=== PATIENT | female | born 1940 | race African-American/Black ===

== ENCOUNTER 2024-12-13 18:21 | Inpatient (IN) | payer BC, MEDICARE ==
[~2024-12-13] VITALS: Ht 149.9 cm; Wt 60.8 kg
[2024-12-13 20:11] LABS: BASOPHILS % 1.6 % (0.0-2.0); EOSINOPHILS % 8.3 % (0.0-5.0); HEMATOCRIT. 35.5 % (36.0-48.0); HEMOGLOBIN. 11.5 g/dL (12.0-16.0); LYMPHOCYTES % 17.1 % (20.0-50.0); MEAN CORPUSCULAR HEMOGLOBIN 28.2 pg (28.0-32.0); MEAN CORPUSCULAR HGB CONC 32.5 g/dL (31.0-37.0); MEAN CORPUSCULAR VOLUME 86.7 fL (81.0-99.0); MEAN PLATELET VOLUME 9.5 fl (7.4-10.4); PLATELET 245 x1000/uL (130-400); RED BLOOD CELL COUNT 4.09 mill/uL (4.2-5.4); RED CELL DISTRIBUTION WIDTH 15.4 % (11.6-14.6); WHITE BLOOD COUNT 7.1 x1000/uL (4.5-11.0)
[2024-12-13 20:18] LABS: CHLORIDE 109 mEq/L (98-107); POTASSIUM 4.1 mEq/L (3.5-5.1); SODIUM 144 mEq/L (136-145)
[2024-12-13 20:19] LABS: CALCIUM 9.8 mg/dL (8.7-10.4); CARBON DIOXIDE 29 mEq/L (21-32)
[2024-12-13 20:24] LABS: CREATININE 1.4 mg/dL (0.6-1.0); GLUCOSE 91 mg/dL (70-105); UREA NITROGEN BLOOD 19 mg/dL (9-23)
[2024-12-13 20:28] LABS: INR 1.1; PARTIAL THROMBOPLASTIN TIME 27.3 sec (23.4-31.0); PROTHROMBIN TIME 11.4 sec (9.6-11.0)
[2024-12-13 20:32] LABS: TROPONIN I HIGH SENSITIVITY 41 ng/L (3.0-34)
[2024-12-13 21:43] LABS: TROPONIN I HIGH SENSITIVITY 35 ng/L (3.0-34)
[2024-12-13] MEDS: ASPIRIN 325MG EC TABLET PO ONE (22:27)
[2024-12-13] MEDS: SODIUM CHLORIDE 0.9% 500 ML IV ONE (22:27)
[2024-12-13] MEDS: ENOXAPARIN 40MG/0.4ML SYR SUBCUT ONE (22:27)
[2024-12-13] MEDS ORDERED: ASPIRIN 81MG EC TABLET PO SCH (22:30)
[2024-12-13] MEDS ORDERED: ONDANSETRON HCL 4MG/2ML INJ IV PRN (22:30)
[2024-12-13 23:15] VITALS: BP 157/57; PULSE 61; RESP 18; TEMP 36.3
[2024-12-14 00:13] LABS: TRIGLYCERIDE 101 mg/dL (0-150)
[2024-12-14 00:14] LABS: LDL CHOLESTEROL 93 mg/dL (5-100)
[2024-12-14 00:15] LABS: CHOLESTEROL 154 mg/dL (<200); HDL CHOLESTEROL 43 mg/dL (>65)
[2024-12-14 00:17] LABS: THYROID STIMULATING HORMONE 1.42 uIU/mL (0.55-4.78)
[2024-12-14 04:00] VITALS: BP 146/51; PULSE 49; RESP 17; TEMP 36.1; O2SAT 99
[2024-12-14] MEDS ORDERED: DEXTROSE 50% WATER 50ML SYRINGE IV PRN (04:15)
[2024-12-14] MEDS: BRIMONIDINE 0.2% OPHTH DROPS 10ML BOTHEYE SCH (06:00)
[2024-12-14] MEDS: PANTOPRAZOLE 40MG DR TABLET PO SCH (06:44)
[2024-12-14] MEDS: BLOOD SUGAR DIAGNOSTIC STRIP TEST SCH (06:51)
[2024-12-14] MEDS: INSULIN LISPRO 100 UNITS/ML SUBCUT SCH (07:28)
[2024-12-14 08:00] VITALS: BP_SYST 165; BP_DIAS 112; BP_DIAS 42; PULSE 56; RESP 18; TEMP 35.8; O2SAT 100
[2024-12-14] MEDS ORDERED: LOTEN PO SCH (09:00)
[2024-12-14] MEDS: DOCUSATE SODIUM 250MG CAPSULE PO SCH (09:10)
[2024-12-14] MEDS: AMLODIPINE 10MG TABLET PO SCH (09:10)
[2024-12-14] MEDS: LISINOPRIL 40MG TABLET PO SCH (09:10)
[2024-12-14 12:01] LABS: EOSINOPHILS % 13.5 % (0.0-5.0); HEMATOCRIT. 37.2 % (36.0-48.0); LYMPHOCYTES % 29.2 % (20.0-50.0); MEAN CORPUSCULAR HEMOGLOBIN 27.6 pg (28.0-32.0); MEAN CORPUSCULAR HGB CONC 32.2 g/dL (31.0-37.0); MEAN CORPUSCULAR VOLUME 85.7 fL (81.0-99.0); MEAN PLATELET VOLUME 9.6 fl (7.4-10.4); MONOCYTES % 12.9 % (2.0-8.0); NEUTROPHILS % 42.4 % (40.0-76.0); PLATELET 251 x1000/uL (130-400); RED BLOOD CELL COUNT 4.34 mill/uL (4.2-5.4); RED CELL DISTRIBUTION WIDTH 15.5 % (11.6-14.6); WHITE BLOOD COUNT 6.5 x1000/uL (4.5-11.0)
[2024-12-14 12:31] LABS: CHLORIDE 107 mEq/L (98-107); POTASSIUM 3.9 mEq/L (3.5-5.1); SODIUM 147 mEq/L (136-145)
[2024-12-14 12:32] LABS: CALCIUM 9.4 mg/dL (8.7-10.4); CARBON DIOXIDE 30 mEq/L (21-32)
[2024-12-14 12:34] LABS: CREATINE KINASE MB FRACTION 2.2 ng/mL (0.5-3.6)
[2024-12-14 12:37] LABS: ALANINE AMINOTRANSFERASE 7 IU/L (10-49); CREATININE 1.2 mg/dL (0.6-1.0); GLUCOSE 81 mg/dL (70-105); UREA NITROGEN BLOOD 23 mg/dL (9-23)
[2024-12-14 12:39] LABS: ALBUMIN 3.8 g/dL (3.2-4.8); ASPARTATE AMINOTRANSFERASE 14 IU/L (<34); BILIRUBIN TOTAL 0.5 mg/dL (0.1-1.0); PROTEIN TOTAL 6.4 g/dL (6.0-8.3)
[2024-12-14 12:54] LABS: TROPONIN I HIGH SENSITIVITY 47 ng/L (3.0-34)
[2024-12-14] MEDS: HYDRALAZINE HCL 50MG TABLET PO SCH (13:40)
[2024-12-14] MEDS: SODIUM CHLORIDE 0.45% 1,000 ML IV SCH (13:41)
[2024-12-14 16:00] VITALS: BP 134/75; PULSE 60; RESP 19; TEMP 36.5; O2SAT 100
[2024-12-14 16:33] LABS: CREATINE KINASE MB FRACTION 1.6 ng/mL (0.5-3.6)
[2024-12-14 20:00] VITALS: BP 125/34; PULSE 58; RESP 18; TEMP 36.2; O2SAT 98
[2024-12-14] MEDS: ATORVASTATIN CALCIUM 10MG TABLET PO SCH (21:43)
[2024-12-14] MEDS: LATANOPROST 0.005% OPHTH DROPS 2.5ML BOTHEYE SCH (21:44)
[2024-12-15 08:00] VITALS: BP 168/54; PULSE 64; RESP 20; TEMP 36.4; O2SAT 96
[2024-12-15 08:05] LABS: BASOPHILS % 1.4 % (0.0-2.0); EOSINOPHILS % 11.4 % (0.0-5.0); HEMATOCRIT. 35.3 % (36.0-48.0); HEMOGLOBIN. 11.4 g/dL (12.0-16.0); LYMPHOCYTES % 27.3 % (20.0-50.0); MEAN CORPUSCULAR HGB CONC 32.3 g/dL (31.0-37.0); MEAN CORPUSCULAR VOLUME 86.7 fL (81.0-99.0); MEAN PLATELET VOLUME 9.7 fl (7.4-10.4); MONOCYTES % 9.1 % (2.0-8.0); NEUTROPHILS % 50.8 % (40.0-76.0); PLATELET 233 x1000/uL (130-400); RED BLOOD CELL COUNT 4.08 mill/uL (4.2-5.4); RED CELL DISTRIBUTION WIDTH 15.8 % (11.6-14.6); WHITE BLOOD COUNT 6.1 x1000/uL (4.5-11.0)
[2024-12-15 08:47] LABS: CARBON DIOXIDE 27 mEq/L (21-32); CHLORIDE 109 mEq/L (98-107); POTASSIUM 4.4 mEq/L (3.5-5.1); SODIUM 146 mEq/L (136-145)
[2024-12-15 08:49] LABS: CALCIUM 9.4 mg/dL (8.7-10.4)
[2024-12-15 08:51] LABS: THYROID STIMULATING HORMONE 1.23 uIU/mL (0.55-4.78)
[2024-12-15 08:52] LABS: CREATININE 1.2 mg/dL (0.6-1.0)
[2024-12-15 08:53] LABS: GLUCOSE 104 mg/dL (70-105); UREA NITROGEN BLOOD 22 mg/dL (9-23)
[2024-12-15 12:00] VITALS: BP 197/71; PULSE 58; RESP 18; TEMP 36.6; O2SAT 97
[2024-12-15] MEDS: HYDRALAZINE HCL 100MG TABLET PO SCH (14:00)
[2024-12-15] MEDS: MAGNESIUM 1 G PREMIX 100 ML IV SCH (14:24)
[2024-12-15 16:00] VITALS: BP 126/57; PULSE 57; RESP 18; TEMP 36.6; O2SAT 100
[2024-12-15 20:00] VITALS: BP 138/46; PULSE 48; RESP 18; TEMP 36.2; O2SAT 100
[2024-12-16] VITALS: BP 131/44; PULSE 64; RESP 19; TEMP 36.6; O2SAT 97
[2024-12-16 04:00] VITALS: BP 150/52; PULSE 49; RESP 18; TEMP 36.4; O2SAT 98
[2024-12-16 06:58] LABS: CHLORIDE 107 mEq/L (98-107); POTASSIUM 4.1 mEq/L (3.5-5.1); SODIUM 145 mEq/L (136-145)
[2024-12-16 06:59] LABS: CARBON DIOXIDE 28 mEq/L (21-32)
[2024-12-16 07:04] LABS: CREATININE 1.3 mg/dL (0.6-1.0); GLUCOSE 94 mg/dL (70-105)
[2024-12-16 07:05] LABS: UREA NITROGEN BLOOD 18 mg/dL (9-23)
[2024-12-16 07:12] LABS: BASOPHILS % 1.5 % (0.0-2.0); EOSINOPHILS % 9.9 % (0.0-5.0); HEMATOCRIT. 38.7 % (36.0-48.0); HEMOGLOBIN. 12.7 g/dL (12.0-16.0); LYMPHOCYTES % 21.1 % (20.0-50.0); MEAN CORPUSCULAR HEMOGLOBIN 28.2 pg (28.0-32.0); MEAN CORPUSCULAR HGB CONC 32.9 g/dL (31.0-37.0); MEAN CORPUSCULAR VOLUME 85.7 fL (81.0-99.0); MEAN PLATELET VOLUME 9.7 fl (7.4-10.4); MONOCYTES % 10.6 % (2.0-8.0); NEUTROPHILS % 56.9 % (40.0-76.0); PLATELET 248 x1000/uL (130-400); RED BLOOD CELL COUNT 4.51 mill/uL (4.2-5.4); RED CELL DISTRIBUTION WIDTH 15.5 % (11.6-14.6); WHITE BLOOD COUNT 7.5 x1000/uL (4.5-11.0)
[2024-12-16 08:00] VITALS: BP 159/59; PULSE 61; RESP 20; TEMP 36.9; O2SAT 98
[2024-12-16 12:00] VITALS: BP 153/54; PULSE 57; RESP 18; O2SAT 97
[2024-12-16 16:00] VITALS: BP 110/48; PULSE 55; RESP 18; TEMP 36.2; O2SAT 96
[2024-12-16 20:00] VITALS: BP 122/56; PULSE 80; RESP 18; TEMP 36.7; O2SAT 97
[2024-12-16] MEDS: ACETAMINOPHEN 325MG TABLET PO PRN (21:38)
[2024-12-17] VITALS: BP 118/66; PULSE 98; RESP 20; TEMP 36.7; O2SAT 98
[2024-12-17 04:00] VITALS: BP 120/52; PULSE 55; RESP 20; TEMP 36.9; O2SAT 98
[2024-12-17 08:00] VITALS: BP 128/59; PULSE 57; RESP 18; TEMP 36.4; O2SAT 97
[2024-12-17] MEDS ORDERED: PANT40TA51 PO (09:18)
[2024-12-17] MEDS ORDERED: DOCU250C14 PO (09:18)
[2024-12-17] MEDS ORDERED: ATOR10TA PO (09:18)
[2024-12-17] MEDS ORDERED: AMLO1CAP2 MT (09:18)
[2024-12-17] MEDS ORDERED: HYDR100T31 PO (09:18)
[2024-12-17] MEDS ORDERED: BRIM.2 BOTHEYE (09:18)
[2024-12-17] MEDS ORDERED: XALAO BOTHEYE (09:18)
[2024-12-17 10:22] VITALS: BP 128/59; PULSE 57; TEMP 97.6; O2SAT 97
== END 2024-12-17 13:35 | disposition home or self-care (01) | DRG 74 ==
LOC: ER 18:21 → 8WST 22:02 → EDBEDREQ 22:10 → EDBEDREQTM 22:10 → ENRESERV 22:20
PROVIDERS: ADMIT Internal Medicine Geriatric Medicine; ATTEND Internal Medicine Geriatric Medicine
DX: G90.89 Other disorders of autonomic nervous system (principal); N17.9 Acute kidney failure, unspecified; R00.1 Bradycardia, unspecified; N18.9 Chronic kidney disease, unspecified; E11.22 Type 2 diabetes mellitus with diabetic chronic kidney disease; D63.1 Anemia in chronic kidney disease; E78.5 Hyperlipidemia, unspecified; R79.89 Other specified abnormal findings of blood chemistry; I12.9 Hypertensive chronic kidney disease with stage 1 through stage 4 chronic kidney disease, or unspecified chronic kidney disease; J45.909 Unspecified asthma, uncomplicated; Z79.84 Long term (current) use of oral hypoglycemic drugs; Z79.82 Long term (current) use of aspirin; Z79.899 Other long term (current) drug therapy; Z90.710 Acquired absence of both cervix and uterus
CPT/HCPCS: 36415; 71045; 80048; 80053; 80061; 82553; 82962; 83036; 83735; 83880; 84443; 84484; 85025; 93005; 93306; 93880; 93970; 97161; 99291; A4606; J1650; J3475; J7040

== ENCOUNTER 2025-02-16 02:01 | Emergency (ER) | payer BC, MEDICARE ==
[~2025-02-16] VITALS: Ht 162.6 cm; Wt 65.0 kg
[~2025-02-16 02:01] MED LIST: AMLO1CAP2 MT; ATOR10TA PO; BRIM.2 BOTHEYE; DOCU250C14 PO; HYDR100T31 PO; PANT40TA51 PO; XALAO BOTHEYE
[2025-02-16] MEDS: ACETAMINOPHEN 325MG TABLET PO ONE (02:15)
[2025-02-16 02:49] LABS: BASOPHILS % 0.5 % (0.0-2.0); EOSINOPHILS % 6.7 % (0.0-5.0); HEMATOCRIT. 35.9 % (36.0-48.0); HEMOGLOBIN. 11.7 g/dL (12.0-16.0); LYMPHOCYTES % 29.3 % (20.0-50.0); MEAN PLATELET VOLUME 9.6 fl (7.4-10.4); MONOCYTES % 11.8 % (2.0-8.0); NEUTROPHILS % 51.7 % (40.0-76.0); PLATELET 230 x1000/uL (130-400); RED BLOOD CELL COUNT 4.19 mill/uL (4.2-5.4); RED CELL DISTRIBUTION WIDTH 15.4 % (11.6-14.6)
[2025-02-16 03:09] LABS: CREATININE 1.1 mg/dL (0.6-1.0); UREA NITROGEN BLOOD 14 mg/dL (9-23)
[2025-02-16 03:11] LABS: ASPARTATE AMINOTRANSFERASE 23 IU/L (<34); BILIRUBIN DIRECT 0.2 mg/dL (<=3.0); BILIRUBIN TOTAL 0.6 mg/dL (0.1-1.0); PROTEIN TOTAL 6.9 g/dL (6.0-8.3)
[2025-02-16] MEDS ORDERED: ACET-2708 MT (04:15)
[2025-02-16 04:48] VITALS: BP 232/68; PULSE 68; RESP 18; TEMP 36.7; O2SAT 98
== END 2025-02-16 04:49 | disposition home or self-care (01) ==
LOC: ER 02:01
DX: R10.31 Right lower quadrant pain (principal); I10 Essential (primary) hypertension; Z79.899 Other long term (current) drug therapy; Z90.49 Acquired absence of other specified parts of digestive tract; Z88.5 Allergy status to narcotic agent
CPT/HCPCS: 36415; 74176; 80048; 80076; 85025; 99284

== ENCOUNTER 2025-03-30 10:58 | Emergency (ER) | payer BC, MEDICARE ==
[~2025-03-30] VITALS: Ht 149.9 cm; Wt 59.0 kg
[~2025-03-30 10:58] MED LIST changes: +ACET-2708 MT
[2025-03-30 11:31] VITALS: O2SAT 99
[2025-03-30 11:53] LABS: BASOPHILS % 1.5 % (0.0-2.0); EOSINOPHILS % 4.3 % (0.0-5.0); HEMATOCRIT. 39.2 % (36.0-48.0); HEMOGLOBIN. 12.5 g/dL (12.0-16.0); LYMPHOCYTES % 23.1 % (20.0-50.0); MEAN PLATELET VOLUME 9.4 fl (7.4-10.4); MONOCYTES % 10.6 % (2.0-8.0); NEUTROPHILS % 60.5 % (40.0-76.0); PLATELET 218 x1000/uL (130-400); RED BLOOD CELL COUNT 4.49 mill/uL (4.2-5.4); RED CELL DISTRIBUTION WIDTH 15.0 % (11.6-14.6)
[2025-03-30 12:16] LABS: CREATININE 1.0 mg/dL (0.6-1.0); UREA NITROGEN BLOOD 21 mg/dL (9-23)
[2025-03-30 13:55] LABS: ASPARTATE AMINOTRANSFERASE 29 IU/L (<34); BILIRUBIN DIRECT 0.4 mg/dL (<=3.0); BILIRUBIN TOTAL 1.4 mg/dL (0.1-1.0); PROTEIN TOTAL 7.4 g/dL (6.0-8.3)
[2025-03-30 15:00] VITALS: BP 148/62; PULSE 62; RESP 14; TEMP 36.5; O2SAT 99
== END 2025-03-30 15:01 | disposition home or self-care (01) ==
LOC: ER 10:58
DX: N81.4 Uterovaginal prolapse, unspecified (principal); K40.20 Bilateral inguinal hernia, without obstruction or gangrene, not specified as recurrent; I10 Essential (primary) hypertension; Z79.899 Other long term (current) drug therapy; Z88.5 Allergy status to narcotic agent
CPT/HCPCS: 36415; 74176; 80048; 80076; 85025; 99284